=== PATIENT | female | born 1995 | race Caucasian/White ===

== ENCOUNTER → 2018-05-26 14:35 | Outpatient (CLI) | payer OTHER, SELFPAY ==
--- NOTE | 2018-05-26 | DI.MRI.S_ITS ---
PROCEDURE: MR KNEE RT WO CON INDICATIONS: PAIN IN RIGHT KNEE TECHNIQUE: Noncontrast sagittal PD fast spin echo and T2 fast spin echo with fat saturation, sagittal 3-D FLASH with fat saturation; coronal T1 spin echo and PD fast spin echo with fat saturation, and axial PD fast spin echo with fat saturation through the knee. COMPARISON: None. FINDINGS: Image quality: Excellent. Menisci: The medial and lateral menisci demonstrate normal morphology and internal signal. The meniscal root ligaments appear intact. Cruciate ligaments: The anterior and posterior cruciate ligaments appear intact. Medial structures: The medial collateral ligament appears intact. The semimembranosus tendon insertions and meniscocapsular junction appear intact. Visualized portions of the pes anserinus tendons appear intact without associated bursal fluid collections. Lateral structures: The lateral collateral ligament, long and short heads of the biceps femoris tendon appear intact. The popliteus tendon appears intact. Iliotibial band appears normal. Anterior structures: The quadriceps and patellar tendons appear intact. Patellar alignment is normal. No femoral trochlear dysplasia or ventral trochlear prominence. No edema in the infrapatellar fat pad. Bones and cartilage: No bone marrow contusions or fractures. There is mild superficial chondral fraying along the median ridge of the patella in the patellofemoral compartment. The articular cartilage in the medial and lateral compartments appear preserved. Joint space: There is physiologic knee joint fluid. No Miranda's cyst. Normal appearing synovial plicae are incidentally noted. IMPRESSION: 1. No definite acute internal derangement. 2. Mild superficial cartilage degeneration in the patellofemoral compartment. Dictated by: Jose Luevano M.D. on 05/26/2018 at 16:37 Approved by: Jose Luevano M.D. on 05/26/2018 at 16:40
== END ==
PROVIDERS: Visit Provider General Practice
DX: M25.561 Pain in right knee (principal)
CPT/HCPCS: 73721